=== PATIENT | male | born 1955 | race Caucasian/White ===

== ENCOUNTER 2018-08-06 09:05 | Day surgery (SDC) | payer BC, MEDICARE ==
--- NOTE | 2018-08-06 06:49 | History and Physical - Ferro ---
CHIEF COMPLAINT/HISTORY OF CHIEF COMPLAINT: This patient with a history of intractable lumbar post laminectomy radiculopathy had a spinal cord stimulator trial conducted on 07/06/18 with 75-80% pain control. Due to the failure of therapy and the success of the trial, the patient presents today for implantation of a permanent system. PAST MEDICAL HISTORY: Hypertension and reflux esophagitis. PAST SURGICAL HISTORY: Rotator cuff surgery, hernia repair, gallbladder surgery , and lumbar spinal surgery. MEDICATIONS ON ADMISSION: List to be provided. ALLERGIES: IODINE AND SHELLFISH. FAMILY/PSYCHOSOCIAL HISTORY: Social history - Noncontributory. Family history - Thyroid disease, diabetes, coronary artery disease, hypertension, and cancer. SYSTEMS REVIEW: The patient is appropriate in no acute distress. The remainder of the systems review is positive for headaches, blood pressure, reflux, degenerative arthritis, depression and difficulty sleeping. PHYSICAL EXAMINATION: Height is 5'11", weight is 250. Vital signs are not available. HEENT: Within normal limits. LUNGS: Clear. HEART: Regular and rapid. ABDOMEN: Nontender MUSCULOSKELETAL: Examination of the musculoskeletal system shows diffuse tenderness lumbar spine adjacent to laminectomy scar. Range of motion does produce pain throughout the low back and extending into both lower extremities. There are mild sensory abnormalities and motor weakness to the left lower extremity. Ambulation - No assistive device utilized. NEUROLOGIC: Cranial nerves are intact. IMPRESSION: POST LUMBAR LAMINECTOMY SYNDROME, ICD-10 CODE M96.1 WITH RADICULOPATHY, ICD-10 CODE M54.16 AND M54.17. PLAN: The patient is here for implantation of permanent spinal cord stimulator due to the successful trial and failure of all other therapies. The potential risks, side effects, and complications have all been carefully reviewed and discussed. The procedure will be considered outpatient and an overnight stay will be evaluated. JOB NUMBER: [id number] MTDD
[~2018-08-06 09:05] MED LIST: ACETAMINOPHEN 1,000 MG/100 ML BTL IV ONE; CEFAZOLIN 2 Gram 2 GM/50 ML BAG IVPB ONE; FAMOTIDINE 20MG TABLET PO ONE; MECLIZINE 25 MG TABLET PO ONE; METOCLOPRAMIDE 10 MG TABLET PO ONE
[2018-08-06] MEDS ORDERED: FENTANYL PF 100MCG/2ML VIAL IV ONE (09:06)
[2018-08-06] MEDS ORDERED: MIDAZOLAM HCL 2MG/2ML VIAL IV ONE (09:06)
[2018-08-06] MEDS ORDERED: PROPOFOL 10 MG/ML VIAL IV ONE (09:06)
[2018-08-06] MEDS ORDERED: **ER** KETAMINE HCL 500MG/10ML VIAL IV ONE (09:06)
[2018-08-06] MEDS ORDERED: LIDOCAINE 2% MDV (20MG/ML) 20ML VIAL IV ONE (09:06)
[2018-08-06] MEDS ORDERED: CEFAZOLIN 1G VIAL IM ONE (09:06)
[2018-08-06] MEDS ORDERED: LIDOCAINE 1% W/EPI 1:200,000 MPF 30ML SQ ONE (09:06)
[2018-08-06] MEDS ORDERED: 0.9 % SODIUM CHLORIDE 10 ML VIAL IVP ONE (09:06)
[2018-08-06] MEDS ORDERED: LABETALOL HCL 5MG/ML, 20ML VIAL IV ONE (09:06)
[2018-08-06] MEDS ORDERED: BUPIVACAINE 0.5% W/EPI MPF 30 ML VIAL IVP ONE (09:06)
--- NOTE | 2018-08-07 16:59 | Operative Note ---
DATE OF SURGERY: 08/06/2018. PREOPERATIVE DIAGNOSIS: 1. POSTLUMBAR LAMINECTOMY SYNDROME, ICD-10 CODE M96.1. 2. RADICULOPATHY, ICD-10 CODE M54.16 AND M54.17. POSTOPERATIVE DIAGNOSIS: 1. POSTLUMBAR LAMINECTOMY SYNDROME, ICD-10 CODE M96.1. 2. RADICULOPATHY, ICD-10 CODE M54.16 AND M54.17. OPERATION: 1. Fluoroscopically guided left epidural access at T12-L1. Placement of spinal cord stimulator lead 1, a [employer] Infineon 16 with 16 electrodes, positioned left at T7. 2. Fluoroscopically guided epidural access at left T12-L1. Placement of spinal cord stimulator lead 2, a [employer] Infineon 16 with 16 electrodes, positioned at right T7. 3. Complex programming of lead 1 over 20 minutes followed by complex programming of lead 2 over 20 minutes. 4. Incision, subcutaneous dissection, and anchoring of lead 1 and lead 2 to the supraspinous fascia using a [employer] locking anchor. 5. Incision, subcutaneous dissection, and creation of subcutaneous pouch at left flank for placement of the generator identified as a 27 bards programmable rechargeable Wavewriter. 6. Tunneling between pouches. Placement of external portion of lead 1 and lead 2 into generator pouch, each lead interfaced to the generator. 7. Placement of generator pouch. Placement of leads into pouch. 8. Closure of both incisions with Stratafix suture, #2-0 for the fascia, and #3 -0 for the skin. Dermabond closure. 9. Complex recovery room programming of the internal generator for home use, two stimulators, for 20 minutes. SURGEON: Jeff Burleson D.O. ANESTHESIA: Local sedation. ANESTHESIA PROVIDER: Pam Stevens CRNA INDICATION: This patient presents with a history of intractable pain which is in the back, hips, and legs. Due to the failure of therapy, a spinal cord stimulator trial was conducted with 75 to 80 percent pain control. Due to the failure of all therapies and the success of the trial, the patient presents today for implantation of a permanent system. DESCRIPTION OF PROCEDURE: Intravenous lines, vital sign monitoring, and intravenous sedation. Prepped and draped with sterile technique. Under imaging , the epidural interspace at T12-L1 was identified and marked left of the midline. The skin was infiltrated. Two separate Epimed needles with loss of resistance were inserted into the same level at T12-L1. At the upper access, spinal cord stimulator lead 1, a [employer] Infineon 16 with 16 electrodes, was positioned to the left of midline at T7. At the lower access, spinal cord stimulator lead 2, a [employer] Infineon 16 with 16 electrodes, was positioned right at the midline at T7. Complex programming of lead 1 over 20 minutes was followed by complex programming of lead 2 over 20 minutes. This resulted in complete patterns of stimulation across the back and into the legs. The patient indicated we were in all of the areas of the pain. He was then given the option to implant, continue to program, or remove. He opted to implant. The question was repeated with the same response. He was then resedated, and the skin above an below both needles was infiltrated. The needles were removed and each lead was anchored to the supraspinous fascia with a a 27 bards locking anchor. At the left flank, which was the site picked by the patient for the generator, the skin was infiltrated. An incision was made and subcutaneous dissection was conducted to form a pouch of suitable size and depth for the generator. Antibiotic irrigation and Bovie for hemostasis. A tunneling tool was used to connect the pouches and carry the external portion of each lead into the generator pouch. Each lead was then interfaced to the generator. Antibiotic irrigation and Bovie for hemostasis. The generator was placed into the pouch and the leads were placed into their own pouch. Both incisions were then closed with Stratafix suture with #2-0 for the fascia and #3-0 for the skin. A Dermabond closure system was then used to approximate the edges of both wounds. He was transported to the recovery room stable, showing no side effects from the procedure or the sedation. When fully awake and alert, complex programming was performed re-establishing stimulation and pain control to all of the appropriate areas. The patient and his were instructed on the use of the system and were provided with information on air messaging. He was then prepared for discharge. DISCHARGE INSTRUCTIONS: 1. The sites are to remain clean and dry. Although the Dermabond will allow showering, he should not sit in water. 2. Standard medications to be resumed including Levaquin the antibiotic 500 mg once a day for 14 days. 3. The office will contact the patient in 24 to 48 hours to set up a time in the next seven to ten days to evaluate his sites. Until then, he is to keep his activities low. 5. All other instructions were provided and numbers to contact with problems were given. He was then prepared for discharge. JOB NUMBER: [id number] cc: Zana Fairbanks, NOE [facility]ITAL[facility]ide[facility]
--- NOTE | 2018-08-09 07:23 | RADIOLOGY REPORT ---
EXAM: LUMBAR SPINE HISTORY: BACK PAIN. STIMULATOR DEVICE. TECHNIQUE: A single AP view of the lumbar spine was performed. FINDINGS: The pain stimulator lead tips are at the T7 level. IMPRESSION: THE PAIN STIMULATOR LEAD TIPS ARE AT THE T7 LEVEL. JOB NUMBER: [id number] MTDD
== END 2018-08-06 13:25 | disposition home or self-care (01) ==
LOC: SUR 09:05
PROVIDERS: ATTEND Pain Medicine Interventional Pain Medicine
DX: M96.1 Postlaminectomy syndrome, not elsewhere classified (principal); M54.16 Radiculopathy, lumbar region; M54.17 Radiculopathy, lumbosacral region; I10 Essential (primary) hypertension; E11.9 Type 2 diabetes mellitus without complications; E78.00 Pure hypercholesterolemia, unspecified; G25.81 Restless legs syndrome; K21.9 Gastro-esophageal reflux disease without esophagitis; F41.9 Anxiety disorder, unspecified
CPT/HCPCS: 63650; 63685; 01936; 95972; 72020; J3010; J0690; C1820; C1883

== ENCOUNTER 2019-04-15 10:05 | Emergency (ER) | payer BC, MEDICARE ==
--- NOTE | 2019-04-15 10:25 | Emergency Department Record ---
History of Present Illness - General Chief complaint: Weakness Stated complaint: DROOPING ON LEFT SIDE Time Seen by Provider: 04/15/19 10:22 Source: Patient Mode of Arrival: Ambulatory Limitations: No limitations - History of Present Illness Initial comments: Pt to ED from home with for left facial droop onset yesterday AM over 24 hours ago. There is no associated AYALA, visual change, speech change, weakness to arms or legs. Pt states "I sometimes sleep with my hand on my face and I thought that was the issue". Has not changed over pst 24 hours. Hx of DM on Metformin and HTN on meds. No hx CVA. No hx similar facial droop. - Related Data Home Medications Medication Instructions Recorded Confirmed Last Taken Empagliflozin [Jardiance] 10 mg PO DAILY 04/15/19 04/15/19 04/15/19 Fluticasone Propionate [Flonase] 1 spray EACH NARES DAILY 04/15/19 04/15/19 04/15/19 Glipizide [Glipizide ER] 1 tab PO DAILY 04/15/19 04/15/19 04/15/19 Hydrochlorothiazide [Hctz] 25 mg PO DAILY 04/15/19 04/15/19 04/15/19 Metformin HCl 1,000 mg PO BID 04/15/19 04/15/19 04/15/19 Montelukast Sodium [Singulair] 10 mg PO QHS 04/15/19 04/15/19 04/14/19 Omeprazole [Prilosec] 20 mg PO DAILY 04/15/19 04/15/19 04/15/19 Sertraline HCl [Zoloft] 20 mg PO QHS 04/15/19 04/15/19 04/14/19 Allergies Allergy/AdvReac Type Severity Reaction Status Date / Time shellfish derived Allergy ANAPHYLAXIS Verified 04/15/19 10:12 Review of Systems Constitutional: Denies: Chills, Fever, Night sweats, Weakness Eyes: Denies: Eye discharge, Eye pain, Vision change ENT: Denies: Congestion, Dental pain, Ear pain, Throat pain Respiratory: Denies: Cough, Dyspnea Cardiovascular: Denies: Arrhythmia, Chest pain, Palpitations, Syncope Endocrine: Denies: Fatigue, Polyuria Gastrointestinal: Denies: Abdominal pain, Constipation, Diarrhea, Nausea, Vomiting Musculoskeletal: Denies: Arthralgia, Back pain Skin: Denies: Bruising, Rash Neurological: Reports: Weakness (left facial at mouth). Denies: Abnormal gait, Confusion, Headache Psychiatric: Denies: Anxiety, Suicidal thoughts Hematological/Lymphatic: Denies: Anemia Past Medical History - SOCIAL HISTORY Smoking Status: Never smoker - RESPIRATORY Hx Respiratory Disorders: No - CARDIOVASCULAR Hx Hypertension: Yes (On meds good control) - NEURO Hx Neuro Disorders: No - GI Hx GI Disorders: Yes Hx Reflux: Yes (on medication) - Hx Genitourinary Disorders: No - ENDOCRINE Hx Endocrine Disorders: Yes Hx Diabetes: Yes - MUSCULOSKELETAL Hx Musculoskeletal Disorders: Yes Hx Arthritis: Yes (back) - PSYCH Hx Psych Problems: No - HEMATOLOGY/ONCOLOGY Hx Hematology/Oncology Disorders: No Family Medical History Hx Cancer: Father, Mother, Brother/Sister Hx Diabetes: Mother Hx Heart Disease: Brother/Sister Hx HTN: Brother/Sister Hx Stroke: Grandparents Physical Exam - General General Appearance: Alert, Oriented x3, Cooperative, No acute distress - Head Head exam: Atraumatic, Normocephalic Head exam detail: negative: Abrasion, Contusion, General tenderness, Tenderness of temporal artery - Eye Eye exam: Normal appearance, PERRL, EOMI. negative: Nystagmus - ENT ENT exam: Mucous membranes moist, Normal orophraynx, TM's normal bilaterally Ear exam: Normal external inspection Nasal Exam: Normal inspection Mouth exam: Normal external inspection, Tongue normal. negative: Muffled voice, Tongue elevation Teeth exam: Normal inspection Throat exam: Normal inspection - Neck Neck exam: Normal inspection, Full ROM. negative: Lymphadenopathy, Tenderness - Respiratory Respiratory exam: Normal lung sounds bilaterally. negative: Rales, Rhonchi - Cardiovascular Cardiovascular Exam: Regular rate, Normal rhythm, Normal heart sounds. negativ e: Tachycardia Peripheral Pulses: 2+: Radial (R), Radial (L) - GI/Abdominal GI/Abdominal exam: Soft, Normal bowel sounds. negative: Distended, Rebound, Tenderness - Rectal Rectal exam: Deferred - exam: Deferred - Extremities Extremities exam: Normal inspection, Full ROM, Normal capillary refill. negative: Joint swelling, Pedal edema, Tenderness - Back Back exam: Reports: Normal inspection. Denies: Muscle spasm - Neurological Neurological exam: Alert, Normal gait, Oriented X3 (as per NIH scale left facail droop at angle of mouth. Able to left eyebrow and forehead, no lid lag.) - Psychiatric Psychiatric exam: Normal affect, Normal mood. negative: Anxious, Depressed - Skin Skin exam: Normal color. negative: Rash Stroke Assessment - NIH Stroke Scale 1a. Level of Consciousness: (0) Alert 1b. LOC Questions: (0) Answers Correctly 1c. LOC Commands: (0) Performs Tasks Correctly 2. Best Gaze: (0) Normal 3. Visual: (0) No Visual Loss 4. Facial Palsy: (2) Partial Paralysis (droop left mouth) 5a. Motor Arm Left: (0) No Drift 5b. Motor Arm Right: (0) No Drift 6a. Motor Leg Left: (0) No Drift 6b. Motor Leg Right: (0) No Drift 7. Limb Ataxia: (0) Absent 8. Sensory: (0) Normal 9. Best Language: (0) No Aphasia 10. Dysarthria: (0) Normal 11. Extinction/Inattention: (0) No Abnormality NIH Stoke Scale Total: 2 NIH Stroke Scale Date: 04/15/19 NIH Stroke Scale Time: 10:25 Course - Reevaluation(s) Reevaluation #1: 04/15/19 10:28 Seen with facial droop onset over 24 hours ago at home. No change. No AYALA or visual change, no gait issues. No hx same. Reevaluation #2: 04/15/19 12:23 Accepted to [facility] Dr. Flor. Bed available. Pt and aware. Questions answered. Procedures - EKG Initial Date: 04/15/19 Time: 11:00 EKG: Normal EKG (Pt has spinal stimulator causing artifact on EKG) Medical Decision Making - Management Options MDM Management: Additional Work-up Planned (e.g. ADM/Transfer/OP Study) - Data Complexity MDM Data: Labs Ordered and/or Reviewed, X-Ray Ordered and/or Reviewed, EKG Ordered and/or Reviewed, Independent Visualization of Image, Tracing, or Specimen, Discussion of Test Results With Performing Physician - Lab Data Result diagrams: 04/15/19 11:15 04/15/19 11:15 - EKG Data -: EKG Interpreted by Me EKG: Normal EKG - Radiology Data Radiology results: Report reviewed, Image reviewed Disposition Disposition: Transfer Clinical Impression: Facial droop, CVA (cerebral vascular accident) Disposition: Acute Care Hospital Transfer Decision to Admit Date: 04/15/19 Decision to Admit Time: 11:38 Transfer To: [facility] Reason For Transfer: Neurology care and treatment Accepting Physician: Basia Time Discussed w/Accepting Physician: 11:45 Condition: (3) Guarded Forms: Patient Portal Access Time of Disposition: 11:45 Quality - Quality Measures Quality Measures: N/A - Blood Pressure Screening Does Patient Have Any of the Following: No, Active Dx of HTN Blood Pressure Classification: Hypertensive Reading Systolic Measurement: 138 Diastolic Measurement: 94 Screening for High Blood Pressure: Patient Exclusion, Hx of HTN [G9744]
[2019-04-15 11:19] LABS: ABSOLUTE NEUTROPHIL COUNT 5.34; BASO % 0.3 % (0-6); EOS % 1.1 % (0-6); GRAN % 59.3 % (47-80); HEMATOCRIT 46.8 % (42.0-52.0); HEMOGLOBIN 15.4 gm/dl (14.0-18.0); MEAN CELL VOLUME 83.7 fl (81-97); MEAN CORPUSCULAR HEMOGLOBIN 27.5 pg (27-33); MEAN CORPUSCULAR HGB CONC 32.9 g/dl (32-36); MEAN PLATELET VOLUME 9.8 fl (7.4-10.4); MONO % 6.3 % (0-9); PLATELET COUNT 263 K/uL (130-400); RED BLOOD COUNT 5.59 M/uL (4.40-5.70); RED CELL DISTRIBUTION WIDTH 13.1 % (11.5-14.5)
[2019-04-15 11:30] LABS: PARTIAL THROMBOPLASTIN TIME 26.5 SECONDS (24.5-39.1)
[2019-04-15 11:40] LABS: CREATININE 1.3 mg/dL (0.7-1.2)
--- NOTE | 2019-04-18 10:02 | CT SCAN REPORT ---
EXAM: NONCONTRAST CT OF THE BRAIN HISTORY: LEFT FACIAL DROOP, HEADACHE. TECHNIQUE: Noncontrast CT of the brain was obtained. Comparison: None. FINDINGS: No midline shift, mass effect, or abnormal intra or extraaxial fluid collection. No cerebral edema, focal mass or intracranial hemorrhage detected. The ventricle sizes are within normal limits for patient age. Mild scattered periventricular and subcortical white matter hypoattenuation. The visualized paranasal sinuses and mastoid air cells are clear. No evidence of a displaced calvarial fracture. IMPRESSION: 1. NO ACUTE INTRACRANIAL FINDINGS. 2. MILD WHITE MATTER HYPOATTENUATION IS NONSPECIFIC, BUT MAY REPRESENT CHRONIC SMALL VESSEL ISCHEMIC CHANGE. J[facility]: [id number] [facility]
--- NOTE | 2019-04-18 10:05 | RADIOLOGY REPORT ---
EXAM: CHEST, TWO VIEWS HISTORY: LEFT FACIAL DROOP, HEADACHE. TECHNIQUE: Two views of the chest were obtained. Comparison: Spine radiograph 08/06/18. FINDINGS: The cardiac silhouette is within normal limits. The thoracic aorta is tortuous. No focal consolidation. No pleural effusion or pneumothorax. Possible small calcified granuloma in the periphery of the right lung, likely unchanged from comparison. Diffuse thoracic spondylosis. Left humeral head surgical anchors. Mid to lower thoracic region spinal stimulator leads. IMPRESSION: NO ACUTE LUNG FINDINGS. J[facility]BER: [id number] [facility]
== END 2019-04-15 12:43 | disposition short-term general hospital (02) ==
LOC: ER 10:05
DX: I63.9 Cerebral infarction, unspecified (principal); I10 Essential (primary) hypertension; E11.9 Type 2 diabetes mellitus without complications; Z79.84 Long term (current) use of oral hypoglycemic drugs
CPT/HCPCS: 36416; 70450; 71046; 80048; 85025; 85610; 85730; 93005; 93010; 99285

== ENCOUNTER 2019-11-23 09:58 | Day surgery (SDC) | payer BC, MEDICARE ==
--- NOTE | 2019-11-23 07:04 | History and Physical - Ferro ---
CHIEF COMPLAINT/HISTORY OF CHIEF COMPLAINT: This patient presents with a history of post laminectomy radiculopathy. Due to the failure of all therapies including the spinal cord stimulator implant, the patient continues to have pain which is low back, hip and leg. Due to the failure of the therapies, he is here for an implanted spinal catheter infusion trial Hydromorphone to determine if the implantation of a permanent system can be of any value in pain control. PAST MEDICAL HISTORY: Hypertension and reflux esophagitis. PAST SURGICAL HISTORY: Rotator cuff surgery, hernia repair, gallbladder surgery, and lumbar spinal surgery. MEDICATIONS ON ADMISSION: List to be provided. ALLERGIES: IODINE AND SHELLFISH. FAMILY/PSYCHOSOCIAL HISTORY: Social history - Noncontributory. Family history - Thyroid disease, diabetes, coronary artery disease, hypertension and cancer. SYSTEMS REVIEW: The patient is appropriate in no acute distress. The remainder of the systems review is positive for headaches, blood pressure, reflux, degenerative arthritis, depression and difficulty sleeping. PHYSICAL EXAMINATION: Height is 5'11", weight is 250. No vital signs. HEENT: Within normal limits. LUNGS: Clear. HEART: Rapid and regular. ABDOMEN: Nontender. MUSCULOSKELETAL: Examination of the musculoskeletal system shows diffuse tenderness throughout the lumbar spine. Range of motion produces pain into both hips and legs. There is mild motor and sensory abnormalities into the right leg. Ambulation - No assistive device utilized. Sensory castaneda are intact as noted, but there is some motor weakness and mild sensory changes right only. NEUROLOGIC: Cranial nerves are intact. IMPRESSION: POST LUMBAR LAMINECTOMY SYNDROME, ICD-10 CODE M96.1 WITH RADICULOPATHY, ICD-10 CODE M54.16 AND M54.17. PLAN: The patient is here for an implanted spinal catheter infusion trial Hydromorphone to determine if the implantation of a permanent system can be of any value in pain control. The procedure will be considered outpatient although an overnight stay will be evaluated. Because of the extent of his fusion, hardware screws and rods L3-L4 to L5-S1 it is doubtful that an epidural blood patch will be performed. He will be kept flat overnight and discharged in the morning. IV caffeine protocol will be utilized. The risks, side effects and complications have been reviewed and discussed. JOB NUMBER: [id number] [facility]
[~2019-11-23 09:58] MED LIST changes: -ACETAMINOPHEN 1,000 MG/100 ML BTL IV ONE; +ACETAMINOPHEN 1,000 MG/100 ML BTL IVPB ONE; +CEFAZOLIN 1 Gram 1 GM/50 ML BAG IVPB ONE; +HYDROMORPHONE PF 2MG/ML AMP 0.008 MG in 0.9 % SODIUM CHLORIDE 10ML VIA 0.996 ML IV ONE; +HYDROMORPHONE PF 2MG/ML AMP 8 MG in 0.9 % SODIUM CHLORIDE 500ML 496 ML IV ONE
[2019-11-23] MEDS ORDERED: LIDOCAINE 2% MDV (20MG/ML) 20ML VIAL IV ONE (09:59)
[2019-11-23] MEDS ORDERED: MIDAZOLAM HCL 2MG/2ML VIAL IV ONE (09:59)
[2019-11-23] MEDS ORDERED: 0.9 % SODIUM CHLORIDE 100ML 100 ML IV ONE (09:59)
[2019-11-23] MEDS ORDERED: PROPOFOL 10 MG/ML VIAL IV ONE (09:59)
[2019-11-23] MEDS ORDERED: FENTANYL PF 100MCG/2ML VIAL IV ONE (09:59)
[2019-11-23] MEDS ORDERED: RINGERS SOLUTION,LACTATED 1,000 ML IV ONE ×2 (10:35→13:00)
[2019-11-23] MEDS ORDERED: BUPIVACAINE 0.5% W/EPI MPF 30 ML VIAL SQ ONE (12:15)
[2019-11-23] MEDS ORDERED: LIDOCAINE 1% W/EPI 1:100,000 MDV 20 ML VIAL SQ ONE (12:15)
[2019-11-23] MEDS ORDERED: CEFAZOLIN 1G VIAL IR ONE (12:15)
[2019-11-23] MEDS ORDERED: CAFFEINE/SODIUM BENZOATE 250MG 500 MG in 0.9 % SODIUM CHLORIDE 100ML 100 ML IVPB ONE (13:02)
[2019-11-23] MEDS: RINGERS SOLUTION,LACTATED 1,000 ML IV SCH ×2 (13:45→22:19)
[2019-11-23] MEDS ORDERED: HYDROCODONE/APAP 7.5/325MG TABLET PO PRN ×2 (14:15)
[2019-11-23] MEDS ORDERED: TEMAZEPAM 15 MG CAPSULE PO PRN (14:15)
[2019-11-23] MEDS ORDERED: DIPHENHYDRAMINE HCL 25 MG CAPSULE PO PRN ×2 (14:15)
[2019-11-23] MEDS ORDERED: ACETAMINOPHEN 325 MG TAB PO PRN (14:15)
[2019-11-23] MEDS ORDERED: DIPHENHYDRAMINE HCL 50 MG/ML VIAL IVP PRN ×2 (14:15)
[2019-11-23] MEDS ORDERED: METOCLOPRAMIDE 10 MG TABLET PO PRN (14:15)
[2019-11-23] MEDS ORDERED: HYDROMORPHONE HCL 2 MG/ML VIAL IM PRN ×2 (14:15)
[2019-11-23] MEDS ORDERED: SENNOSIDES/DOCUSATE SODIUM UD CAPSULE PO PRN ×2 (14:15)
[2019-11-23] MEDS ORDERED: NALOXONE 0.4 MG/1 ML VIAL IVP PRN (14:15)
[2019-11-23] MEDS ORDERED: AL HYDROX/MAG HYDROX 30ML UD PO PRN (14:15)
[2019-11-23] MEDS ORDERED: OXYCODONE/APAP 10MG-325MG TABLET PO PRN ×2 (14:15)
[2019-11-23] MEDS ORDERED: METOCLOPRAMIDE HCL 10 MG/2 ML VIAL IVP PRN (14:15)
[2019-11-23] MEDS ORDERED: ROPINIROLE HCL 1 MG TABLET PO PRN (14:16)
[2019-11-23] MEDS ORDERED: CYCLOBENZAPRINE 10MG TABLET PO PRN (14:17)
[2019-11-23] MEDS ORDERED: ZOLPIDEM TARTRATE 5 MG TABLET PO PRN (14:17)
[2019-11-23] MEDS ORDERED: CAFFEINE/SODIUM BENZOATE 250MG 500 MG in 0.9 % SODIUM CHLORIDE 100ML 100 ML IVP ONE (19:00)
[2019-11-23] MEDS: CEFAZOLIN 2 Gram 2 GM/50 ML BAG IVPB SCH (20:57)
[2019-11-23] MEDS ORDERED: GLIPIZIDE 5 MG TABLET PO SCH (22:00)
[2019-11-23] MEDS ORDERED: SERTRALINE HCL 50 MG TABLET PO SCH (22:00)
[2019-11-23] MEDS ORDERED: MONTELUKAST SODIUM 10MG TABLET PO SCH (22:00)
[2019-11-23] MEDS ORDERED: ATORVASTATIN 20 MG TABLET PO SCH (22:00)
[2019-11-23] MEDS ORDERED: HYDROCHLOROTHIAZIDE 25 MG TABLET PO SCH (22:00)
[2019-11-23] MEDS ORDERED: METOPROLOL SUCC 25 MG TAB.ER PO SCH (22:00)
[2019-11-23] MEDS: METFORMIN 500 MG TABLET PO SCH (22:20)
[2019-11-23] MEDS: PANTOPRAZOLE SODIUM 40 MG TABLET PO SCH (22:21)
[2019-11-24] MEDS: CEFAZOLIN 2 Gram 2 GM/50 ML BAG IVPB SCH ×2 (04:36→13:24)
--- NOTE | 2019-11-24 12:56 | Operative Note - Ferro ---
DATE OF SURGERY: 11/23/2019 PREOPERATIVE DIAGNOSIS: POST LUMBAR LAMINECTOMY SYNDROME, ICD-10 CODE M96.1 WITH RADICULOPATHY, ICD-10 CODE M54.16 AND M54.17. OPERATION: 1. FLUOROSCOPICALLY GUIDED ACCESS SPINAL SPACE AT L2-L3, PLACEMENT OF THIN WALLED SPINAL CATHETER AT T11-T12. 2. SALINE INJECTION AND ASPIRATING AND CLEARING CATHETER TO INSURE PATENCY. 3. BOLUS HYDROMORPHONE 0.004 MG SPINAL SPACE. 4. INCISION, SUBCUTANEOUS DISSECTION, ANCHORING SPINAL CATHETER TO THE SUPRASPINOUS FASCIA WITH A [employer] ANCHOR AND NONABSORBABLE SUTURE. 5. INCISION, SUBCUTANEOUS DISSECTION, CREATION OF SMALL POUCH LEFT FLANK ULTIMATELY FOR PUMP. 6. TUNNELLING MIDLINE SPINAL CATHETER INTO FLANK POUCH, INTERFACE CATHETER WITH SECOND CATHETER COMPONENT BY WAY OF A CONNECTOR. 7. TUNNELLING SECOND CATHETER COMPONENTS 6 CM SUPERIOR EXITING THE SKIN, INTERFACED TO THE EXTERNAL PUMP SET TO DELIVER HYDROMORPHONE 0.16 MG A DAY. 8. CLOSURE OF MIDLINE INCISION, VICRYL FOR THE FASCIA, AND RUNNING NYLON FOR SKIN. CLOSURE OF FLANK INCISION USING RUNNING NYLON. 9. DRESSING PLACED SECURING CATHETER AND ALL CONNECTIONS WITH STERILE DRESSING. THE PATIENT WAS TRANSPORTED TO THE RECOVERY ROOM FLAT, PILLOW UNDER HEAD AND KNEES, STABLE. NO SIDE EFFECTS FROM THE PROCEDURE OR SEDATION. FULL FUNCTIONALITY OF THE EXTREMITIES. SURGEON: Jeff Burleson D.O. ANESTHESIA: Local sedation. ANESTHESIA PROVIDER: Artur Brownlee CRNA INDICATION: This patient with a post laminectomy radiculopathy has fusion at three levels of the lumbar spine L3-L4 and L5-S1. The stimulator in place is not helping control his intense pain. He is here for an implanted catheter infusion trial spinal Hydromorphone to determine if the implantation of a permanent system can be of any value in pain control. PROCEDURE: Intravenous line, vital sign monitoring, IV sedation, prepped and draped, sterile technique. Under imaging the patient is prone. The spinal interspaces above the hardware at L2-L3 is marked, infiltrated, 20-gauge spinal needle using AP and lateral imaging into the space, CSF flow noted. Thin wall spinal catheter advanced position T11-T12. No contrast because of allergies. Saline injected and aspirated confirming patency. A bolus of Hydromorphone 0.004 mg was given into the spinal space. The catheter was clamped to stop CSF leak. The skin above the below the needle was infiltrated, an incision was made, and subcutaneous dissection was conducted to the supraspinous fascia. A pursestring suture was placed, the needle was removed to stop CSF leak. Using nonabsorbable suture an anchoring device was used to secure the catheter to the supraspinous fascia. CSF still noted through the catheter. At the site for the pump picked by the patient left , skin infiltrated, a small incision was made, a tunnelling tool was used to secure the spinal catheter into the small pouch and then this catheter was interfaced with a second catheter component by way of connector. The second catheter component tunnel 6 cm superior from this site exiting skin. The external catheter was then interfaced to an external pump set to deliver Hydromorphone 0.16 mg a day. The midline incision was closed using 2-0 for fascia and running nylon for skin. The left pouch was closed with a running nylon. No epidural blood patchy was performed because of extent of surgery. A dressing was then placed securing the catheter and all connections under the sterile dressing. The pump was set to deliver Hydromorphone 0.16 mg and conformed. He was transported to the Recovery Room stable with a pillow under his head and knees. He will stay flat for four despite the absence of the blood patch. He will be given intravenous caffeine by protocol to help stabilize and present headache. He will stay overnight for observation and he will receive a second dose of the IV caffeine protocol while inhouse. He will be discharged in the morning. DISCHARGE INSTRUCTIONS: 1. The sites are to remain clean and dry. No showering or bathing in any way that would disrupt the dressings. If it happens contact the clinic. 2. Standard medications resumed including the antibiotic Levaquin 500 mg once a day for fourteen days. 3. The trial will run 12-14 days, during this period of time we will evaluate pain control, three increases will be scheduled. At the end of the trial period we will either remove the implanted catheter or implant the device. Side effects including risks of depression, nausea, vomiting, constipation, or rash have all been reviewed and discussed. He will be discharged in the morning JOB NUMBER: [id number] MTDD
[2019-11-24] MEDS: METFORMIN 500 MG TABLET PO SCH (13:27)
[2019-11-24] MEDS: RINGERS SOLUTION,LACTATED 1,000 ML IV SCH ×2 (13:27→16:28)
[2019-11-24] MEDS: PANTOPRAZOLE SODIUM 40 MG TABLET PO SCH (13:28)
--- NOTE | 2019-11-24 18:20 | RADIOLOGY REPORT ---
EXAMINATION: Thoracolumbar spine Spine Single View EXAM DATE: 11/23/2019 5:31 PM TECHNIQUE: Lateral view INDICATION: S/P PAIN PUMP TRIAL COMPARISON: 08/06/2018 ENCOUNTER: Initial FINDINGS: Single AP view thoracolumbar spine diffuse spondylitic change. Epidural wires project at T7 distally. Lumbosacral fusion. Stimulator projects over left flank IMPRESSION: Diffuse spondylitic change. Epidural wires in place Dictated by: Andres Bullard MD on 11/24/2019 6:16 PM. .
== END 2019-11-24 15:17 | disposition home or self-care (01) ==
LOC: SUR 09:58 → MEDSURG 14:13 → SUR 11-24 15:17
PROVIDERS: ATTEND Pain Medicine Interventional Pain Medicine
DX: M96.1 Postlaminectomy syndrome, not elsewhere classified (principal); M54.16 Radiculopathy, lumbar region; M54.17 Radiculopathy, lumbosacral region; I10 Essential (primary) hypertension; E78.00 Pure hypercholesterolemia, unspecified; R05 Cough; E11.9 Type 2 diabetes mellitus without complications; G25.81 Restless legs syndrome; K21.9 Gastro-esophageal reflux disease without esophagitis; Z86.73 Personal history of transient ischemic attack (TIA), and cerebral infarction without residual deficits; G47.33 Obstructive sleep apnea (adult) (pediatric); E66.9 Obesity, unspecified
CPT/HCPCS: 36416; 72020; 82948; J0690; J3490; J7120

== ENCOUNTER 2019-12-07 09:58 | Day surgery (SDC) | payer BC, MEDICARE ==
--- NOTE | 2019-12-07 07:03 | History and Physical - Ferro ---
CHIEF COMPLAINT/HISTORY OF CHIEF COMPLAINT: This patient with a history of intractable post lumbar laminectomy syndrome is ongoing implanted spinal catheter infusion trial using Hydromorphone. His current base rate is 0.08 mg a day and he is achieving 75-85% pain control. Due to the failure of all other previous therapies and the success of the implanted catheter trial, he presents today for full implantation. PAST MEDICAL HISTORY: Unchanged. PAST SURGICAL HISTORY: Unchanged. MEDICATIONS ON ADMISSION: Unchanged. ALLERGIES: IODINE AND SHELLFISH. FAMILY/PSYCHOSOCIAL HISTORY: Family history - Unchanged. Social history - Unchanged. SYSTEMS REVIEW: Unchanged. PHYSICAL EXAMINATION: Height is 5'11", weight is 250. No vital signs. HEENT: Within normal limits. LUNGS: Clear. HEART: Rapid and regular. ABDOMEN: Nontender. MUSCULOSKELETAL: Examination of the musculoskeletal system shows the dressings for the implanted catheter trial to be intact. External catheter and external pump is noted. A small pouch to the left flank which will be the placement for the pump identified. Dressings are intact. The infusion is working appropriately. All components are intact. Underlying pain pattern post laminectomy low back bilateral lower extremity. NEUROLOGIC: Cranial nerves are intact. IMPRESSION: 1. POST LUMBAR LAMINECTOMY SYNDROME, ICD-10 CODE M96.1, WITH LUMBAR RADICULOPATHY, ICD-10 CODE M54.16 AND M54.17. 2. IMPLANTED SPINAL CATHETER INFUSION TRIAL HYDROMORPHONE. PLAN: This patient is here for full implantation of the permanent system after the conclusion of a successful trial. The procedure will be considered outpatient, an overnight stay should not be necessary. The risks, side effects and complications have been reviewed and discussed. JOB NUMBER: [id number] [facility]
[~2019-12-07 09:58] MED LIST changes: +HYDROMORPHONE HCL 0.04 GM in 0.9 % SODIUM CHLORIDE 10ML VIA 20 ML IV ONE; -HYDROMORPHONE PF 2MG/ML AMP 8 MG in 0.9 % SODIUM CHLORIDE 500ML 496 ML IV ONE
[2019-12-07] MEDS ORDERED: PROPOFOL 10 MG/ML VIAL IV ONE (09:59)
[2019-12-07] MEDS ORDERED: LIDOCAINE 2% MDV (20MG/ML) 20ML VIAL IV ONE (09:59)
[2019-12-07] MEDS ORDERED: MIDAZOLAM HCL 2MG/2ML VIAL IV ONE (09:59)
[2019-12-07] MEDS ORDERED: LABETALOL HCL 5MG/ML, 20ML VIAL IV ONE (09:59)
[2019-12-07] MEDS ORDERED: FENTANYL PF 100MCG/2ML VIAL IV ONE (09:59)
[2019-12-07] MEDS ORDERED: RINGERS SOLUTION,LACTATED 1,000 ML IV ONE ×2 (10:39→13:37)
[2019-12-07] MEDS ORDERED: BUPIVACAINE 0.5% W/EPI MPF 30 ML VIAL SQ ONE (12:07)
[2019-12-07] MEDS ORDERED: LIDOCAINE 1% W/EPI 1:200,000 MPF 30ML SQ ONE (12:07)
[2019-12-07] MEDS ORDERED: CEFAZOLIN 1G VIAL IR ONE (12:08)
[2019-12-07] MEDS: HYDROMORPHONE HCL 2 MG/ML VIAL IVP PRN ×2 (13:22→13:28)
[2019-12-07] MEDS ORDERED: HYDROMORPHONE HCL 2 MG/ML VIAL IM PRN ×2 (14:15)
[2019-12-07] MEDS ORDERED: DIPHENHYDRAMINE HCL 50 MG/ML VIAL IVP PRN ×2 (14:15)
[2019-12-07] MEDS ORDERED: DIPHENHYDRAMINE HCL 25 MG CAPSULE PO PRN ×2 (14:15)
[2019-12-07] MEDS ORDERED: AL HYDROX/MAG HYDROX 30ML UD PO PRN (14:15)
[2019-12-07] MEDS ORDERED: METOCLOPRAMIDE HCL 10 MG/2 ML VIAL IVP PRN (14:15)
[2019-12-07] MEDS ORDERED: HYDROCODONE/APAP 7.5/325MG TABLET PO PRN ×2 (14:15)
[2019-12-07] MEDS ORDERED: OXYCODONE/APAP 10MG-325MG TABLET PO PRN ×2 (14:15)
[2019-12-07] MEDS ORDERED: METOCLOPRAMIDE 10 MG TABLET PO PRN (14:15)
[2019-12-07] MEDS ORDERED: NALOXONE 0.4 MG/1 ML VIAL IVP PRN (14:15)
[2019-12-07] MEDS ORDERED: ROPINIROLE HCL 1 MG TABLET PO PRN (14:47)
[2019-12-07] MEDS: METFORMIN 500 MG TABLET PO SCH (17:56)
[2019-12-07] MEDS: PANTOPRAZOLE SODIUM 40 MG TABLET PO SCH (17:56)
[2019-12-07] MEDS: CEFAZOLIN 2 Gram 2 GM/50 ML BAG IVPB SCH (20:43)
[2019-12-07] MEDS: RINGERS SOLUTION,LACTATED 1,000 ML IV SCH (21:48)
[2019-12-07] MEDS ORDERED: ATORVASTATIN 20 MG TABLET PO SCH (22:00)
[2019-12-07] MEDS ORDERED: METOPROLOL SUCC 25 MG TAB.ER PO SCH (22:00)
[2019-12-07] MEDS ORDERED: MONTELUKAST SODIUM 10MG TABLET PO SCH (22:00)
[2019-12-07] MEDS ORDERED: HYDROCHLOROTHIAZIDE 25 MG TABLET PO SCH (22:00)
[2019-12-07] MEDS ORDERED: GLIPIZIDE 5 MG TABLET PO SCH (22:00)
[2019-12-07] MEDS ORDERED: SERTRALINE HCL 50 MG TABLET PO SCH (22:00)
[2019-12-08] MEDS: CEFAZOLIN 2 Gram 2 GM/50 ML BAG IVPB SCH ×2 (04:05→10:28)
[2019-12-08] MEDS: PANTOPRAZOLE SODIUM 40 MG TABLET PO SCH (06:44)
--- NOTE | 2019-12-08 07:42 | Operative Note - Ferro ---
DATE OF SURGERY: 12/07/2019 PREOPERATIVE DIAGNOSIS: 1. POST LUMBAR LAMINECTOMY SYNDROME, ICD-10 CODE M96.1 WITH RADICULOPATHY, ICD- 10 CODE M54.16 AND M54.17. 2. IMPLANTED SPINAL INFUSION CATHETER TRIAL HYDROMORPHONE. OPERATION: 1. FLUOROSCOPICALLY GUIDED INCISION, SUBCUTANEOUS DISSECTION, AND REMOVAL OF EXTERNALIZED SPINAL CATHETER. 2. INCISION, SUBCUTANEOUS DISSECTION, AND CREATION OF SUBCUTANEOUS POUCH AT LEFT FLANK FOR PLACEMENT OF PUMP, A MEDTRONIC 20 ML PROGRAMMABLE. 3. REVISION AND RESECTION OF INDWELLING SPINAL CATHETER, INTERSECT INDWELLING SPINAL CATHETER WITH SECOND CATHETER COMPONENT BY WAY OF CONNECTOR. 4. PLACEMENT OF 20 ML PROGRAMMABLE PUMP ONTO FIELD, PREFILLED HYDROMORPHONE 2 MG PER ML, INTERFACED TO REVISE CATHETER. 5. PLACEMENT OF PUMP INTO POUCH SECURING TO THE POSTERIOR FASCIA USING NONABSORBABLE SUTURE THREE POINTS PUMP EYELETS. 6. WITH PUMP IN POUCH PLACEMENT OF CURVED 24-GAUGE CROOK NEEDLE TO ACCESS PORT PROGRAMMABLE PUMP ASPIRATING CATHETER CONTENTS AND THEN INJECTING 3 ML PRESERVATIVE FREE SALINE CONFIRMING FUNCTIONALITY OF THE CATHETER. 7. CLOSURE OF INCISION USING STRATAFIX SUTURE 2-0 FASCIA AND 3-0 SKIN. DERMABOND CLOSURE. 8. INCISION, SUBCUTANEOUS DISSECTION AND REMOVAL OF TWO IMPLANTED SPINAL CORD STIMULATOR LEADS. 9. INCISION, SUBCUTANEOUS DISSECTION AND REMOVAL OF INTERNAL PULSE GENERATOR. 10. CLOSURE OF INCISIONS USING STRATAFIX SUTURE 2-0 FASCIA AND 3-0 SKIN. DERMABOND CLOSURE. 11. COMPLEX PROGRAMMING OF PUMP TO DELIVER BY CONTINUOUS INFUSION HYDROMORPHONE AT 0.10 MG A DAY. SURGEON: Jeff Burleson D.O. ANESTHESIA: Local sedation. ANESTHESIA PROVIDER: MARCI Lennon CRNA INDICATION: This patient presents with history of intractable post lumbar laminectomy radiculopathy. Due to the failure of therapy an implanted spinal catheter infusion trial Hydromorphone was conducted with 75+% pain control. Due to the failure of all therapies and the success of the implanted catheter trial, he is here to implant a permanent system. He also has a nonfunctional two lead 16 electrode spinal cord stimulator internal generator which he is requesting be removed. We will use the generator pouch for the pump pouch. PROCEDURE: Intravenous line, vital sign monitoring, IV sedation, prepped and draped, sterile technique, and patient positioned prone. The midline incision for the two spinal cord stimulator leads was infiltrated with local, incision made, and subcutaneous dissection was conducted to the leads, the anchors and the suture were removed. All 16 electrodes times two were accounted for. Antibiotic irrigation, Bovie for hemostasis. At the left posterior gluteal margin generator pouch the skin was infiltrated, incision was made, and subcutaneous dissection was conducted to the generator pouch which was exteriorized and removed along with its connections to the lead. Antibiotic irrigation. The implanted catheter external component was identified, an incision was made, and subcutaneous dissection was conducted at the interface between the internal and external catheter was clamped, cut, and the external catheter was removed by pulling away from the incision. The internal permanent catheter was then clamped to stop CSF leak which was noted. The pouch for the previous generator and the current pouch for the removal of the external catheter was then modified enlarged and deepened to accommodate the pump, a 20 ml programmable Medtronic. Antibiotic irrigation, Bovie for hemostasis. The implanted catheter was then interfaced to a second catheter component by way of connector. The revised catheter would now be interfaced to the pump. A 20 ml programmable pump prefilled Hydromorphone 2 mg per ml placed onto the field, and the revised catheter was interfaced to the pump. The pump was then placed into the currently formed pouch, secured to the posterior fascia with nonabsorbable suture at three points pump eyelets. With the pump firmly in the pouch a 24- gauge Crook needle was inserted into the access port and 1 ml of catheter contents was aspirated clearing the catheter of opioid and CSF mixture. Preservative free saline was then injected through the access port confirming functionality. No contrast because of allergies. With the pump in the pouch the incision was closed using Stratafix suture 2-0 fascia and 3-0 skin. The previous incision for the two lead removal and the generator were also closed using Stratafix suture 2-0 fascia and 3-0 skin. A Dermabond closure was then used to approximate the edges of all incisions. The pump was then programmed to deliver Hydromorphone continuous infusion 0.10 mg a day. He was transported to the Recovery Room stable. There are no side effects from the procedure. There was some oozing from the sites, he will stay flat, and we will keep him overnight for observation. DISCHARGE INSTRUCTIONS: 1. The sites are to remain clean and dry. No showering or bathing in any way that would disrupt dressings. If it happens contact the clinic. Dermabond will allow showering, but he cannot sit in water. 2. Standard medications will be resumed including the antibiotic Levaquin 500 mg once a day for fourteen days. 3. The patient already has analgesics, he will use the analgesics to control his pain. 4. Office to contact the patient at home, we will set up a time in the next 7- 10 days for us to evaluate the sites, until then he is to keep his activities controlled. Spinal opioid side effects respiratory depression, nausea, vomiting, constipation, urinary retention, and rash have all been discussed and reviewed. JOB NUMBER: [id number] [facility]
[2019-12-08] MEDS: METFORMIN 500 MG TABLET PO SCH (08:56)
[2019-12-08] MEDS: RINGERS SOLUTION,LACTATED 1,000 ML IV SCH ×2 (08:57→08:58)
--- NOTE | 2019-12-09 12:13 | RADIOLOGY REPORT ---
EXAMINATION: Thoracolumbar Spine Single View EXAM DATE: 12/07/2019 1:13 PM TECHNIQUE: Frontal view INDICATION: PAIN PUMP IMPLANT COMPARISON: 11/23/2019 ENCOUNTER: Initial FINDINGS: The previously noted epidural spinal cord stimulator electrodes have been removed. Revision of the ba ttery pack is noted above the left iliac crest. The patient has reportedly received an intrathecal pa in pump, however the catheter is not well visualized on the single frontal view in the projection of the spondylotic spine. If further evaluation is clinically warranted, consider cross-sectional imagin g. Posterior spinal fusion and midline laminectomy again noted in the lower lumbar spine. There are s urgical clips in right upper quadrant. IMPRESSION: Status post spinal revision as described above. If further evaluation is clinically warranted, more o ptimal visualization with CT should be considered. Dictated by: Jeff Tinoco MD on 12/09/2019 12:05 PM. .
== END 2019-12-08 11:47 | disposition home or self-care (01) ==
LOC: SUR 09:58 → MEDSURG 13:51 → SUR 12-08 11:47
PROVIDERS: ATTEND Pain Medicine Interventional Pain Medicine
DX: M96.1 Postlaminectomy syndrome, not elsewhere classified (principal); M54.16 Radiculopathy, lumbar region; M54.17 Radiculopathy, lumbosacral region; I10 Essential (primary) hypertension; R05 Cough; E78.00 Pure hypercholesterolemia, unspecified; E11.9 Type 2 diabetes mellitus without complications; G25.81 Restless legs syndrome; K21.9 Gastro-esophageal reflux disease without esophagitis; Z86.73 Personal history of transient ischemic attack (TIA), and cerebral infarction without residual deficits; R20.0 Anesthesia of skin; G47.33 Obstructive sleep apnea (adult) (pediatric)
CPT/HCPCS: 63661; 62362; 01936; 62367; 36416; 82948; 72020; C1755; C1776; C1772; J3490; J3010; J0690 ×3; J1170; J7120